=== PATIENT | male | born 1970 | race Caucasian/White ===

== ENCOUNTER 2021-01-29 16:19 | Emergency (ER) | payer OTHER ==
[2021-01-29 16:52] VITALS: BP 146/82; PULSE 82
[2021-01-29] MEDS ORDERED: Diphtheria,Pertussis(Acell),Tetanus Vaccine 0.5 ML Syringe IM ONE (17:11)
--- NOTE | 2021-01-29 17:17 | EDM.PDOC ---
ED HPI GENERAL MEDICAL PROBLEM - General Chief Complaint: Head Injury Stated Complaint: FELL AND HIT HEAD Time Seen by Provider: 01/29/21 16:55 Source of Information: Reports: Patient History Limitations: Reports: No Limitations - History of Present Illness INITIAL COMMENTS - FREE TEXT/NARRATIVE: c/o head injury worked 17y at [employer], cleaning out the back of a truck with a 10' metal pole, the floor was slick and he slipped, falling to his left, the pole was in his hand and the butt came back and hit him in his R forehead as he fell onto his L side, no LOC, no SCOTT, slight soreness of LUE is now resolved, no neck pain last 2009 he had a lot of swell in his forehead that came down quickly with ice, mild tender to palp FOREHEAD Pain Score (Numeric/FACES): 3 - Related Data Allergies Allergy/AdvReac Type Severity Reaction Status Date / Time No Known Allergies Allergy Verified 12/18/14 19:27 Home Meds: Home Meds Albuterol Sulfate [Albuterol Sulfate HFA] 8.5 gm IH ASDIRECTED PRN 12/19/14 [History] Fluticasone/Salmeterol [Advair 250-50 Diskus] 1 puff INH ASDIRECTED PRN 12/19/14 [History] Montelukast [Singulair] 4 mg PO DAILY 12/19/14 [History] metFORMIN [Glucophage] 1,000 mg PO DAILY 12/19/14 [History] glyBURIDE [Micronase] 5 mg PO BID 01/29/21 [History] lisinopriL [Lisinopril] 10 mg PO DAILY 01/29/21 [History] Past Medical History - Past Health History Medical/Surgical History: Denies Medical/Surgical History Cardiovascular History: Reports: Hypertension Respiratory History: Reports: Asthma Endocrine/Metabolic History: Reports: Diabetes, Type II Social & Family History - Tobacco Use Tobacco Use Status *Q: Never Tobacco User - Recreational Drug Use Recreational Drug Use: No ED ROS GENERAL - Review of Systems Review Of Systems: See Below Constitutional: Reports: No Symptoms HEENT: Reports: No Symptoms Respiratory: Reports: No Symptoms Cardiovascular: Reports: No Symptoms Endocrine: Reports: No Symptoms GI/Abdominal: Reports: No Symptoms : Reports: No Symptoms Musculoskeletal: Reports: No Symptoms Skin: Reports: Wound Neurological: Reports: No Symptoms Psychiatric: Reports: No Symptoms Hematologic/Lymphatic: Reports: No Symptoms Immunologic: Reports: No Symptoms ED EXAM, HEAD INJURY - Physical Exam Exam: See Below Exam Limited By: No Limitations General Appearance: Alert, WD/WN, No Apparent Distress Head: Other (several cm's swell at R lateral forehead at hair line on arrival per RN, pt kept ice on it and there was only 0.5 cm subc edema on my exam, superficial abrasion 2.5 x 2.5 cm, slight tender c/w contusion, no clinical evidence of fx, no ecchymosis, slight rubra c/w cool ice, PERRLA, EOMI) Eyes: Bilateral Eye: EOMI, PERRL Ears: Normal External Exam, Hearing Grossly Normal Nose: Normal Inspection, Normal Mucousa, No Blood Throat/Mouth: Normal Inspection, Normal Lips, Normal Voice, No Airway Compromise Neck: Non-Tender, Full Range of Motion, Normal Alignment, Normal Inspection. No: Muscle Spasm Respiratory: No Respiratory Distress, Lungs Clear Cardiovascular: Regular Rate, Rhythm, No Edema, No Murmur GI/Abdominal Exam: Soft, Non-Tender, No Distention Back Exam: Normal Inspection Extremities: Normal Inspection, Normal Range of Motion, Non-Tender, No Pedal Edema Neurologic: No Motor/Sensory Deficits, Alert, Normal Mood/Affect, Oriented x 3 Skin: Normal Color, Warm/Dry - [place] Coma Score Best Eye Response (Arely): (4) Open Spontaneously Best Verbal Response (Arely): (5) Oriented Best Motor Response (Arely): (6) Obeys Commands Course - Vital Signs Last Recorded V/S: Last Vital Signs Temp Pulse 82 01/29/21 16:30 Resp 18 01/29/21 16:30 BP 146/82 H 01/29/21 16:30 Pulse Ox 96 01/29/21 16:30 - Orders/Labs/Meds Orders: Active Orders 24 hr Category Date Time Status Vaccines to be Administered [RC] PER UNIT ROUTINE Care 01/29/21 17:11 Ordered Diphth,Pertuss(Acell),Tet Vac [Boostrix] Med 01/29/21 17:11 Once 0.5 ml IM .ONCE ONE - Re-Assessments/Exams Free Text/Narrative Re-Assessment/Exam: 01/29/21 17:20 soft tissue injury from force of metal pole on a small area of scalp/forehead he was in the last hour of his shift and did not need a work note urine for drug screen obtained per protocol to see PCP if he has additional symptoms Departure - Departure Time of Disposition: 17:12 Disposition: Home, Self-Care 01 Condition: Good Clinical Impression: Contusion of scalp - Discharge Information *PRESCRIPTION DRUG MONITORING PROGRAM REVIEWED*: Not Applicable *COPY OF PRESCRIPTION DRUG MONITORING REPORT IN PATIENT BETO: Not Applicable Instructions: Facial or Scalp Contusion Referrals: Abigail Piper PA-C [Primary Care Provider] - Additional Instructions: Continue ice for 10 minutes every hour as needed. For pain, as needed, take ibuprofen 200 mg 4 tabs 3 times a day. Get adequate rest today. May work tomorrow. See you doctor in 1-2 days if you have additional symptoms. Sepsis Event Note (ED) - Evaluation Sepsis Screening Result: No Definite Risk - Focused Exam Vital Signs: Vital Signs Pulse Resp BP Pulse Ox 01/29/21 16:30 82 18 146/82 H 96 - My Orders Last 24 Hours: My Active Orders 01/29/21 17:11 Vaccines to be Administered [RC] PER UNIT ROUTINE Diphth,Pertuss(Acell),Tet Vac [Boostrix] 0.5 ml IM .ONCE ONE - Assessment/Plan Last 24 Hours: My Active Orders 01/29/21 17:11 Vaccines to be Administered [RC] PER UNIT ROUTINE Diphth,Pertuss(Acell),Tet Vac [Boostrix] 0.5 ml IM .ONCE ONE
== END 2021-01-29 17:30 | disposition home or self-care (01) ==
LOC: FB.ED 16:19
DX: S00.03XA Contusion of scalp, initial encounter (principal); Z23 Encounter for immunization; I10 Essential (primary) hypertension; J45.909 Unspecified asthma, uncomplicated; E11.9 Type 2 diabetes mellitus without complications; Z79.84 Long term (current) use of oral hypoglycemic drugs; Z79.899 Other long term (current) drug therapy; W01.10XA Fall on same level from slipping, tripping and stumbling with subsequent striking against unspecified object, initial encounter
CPT/HCPCS: 90471; 90715; 99283

== ENCOUNTER 2021-10-02 01:43 | Emergency (ER) | payer OTHER ==
[2021-10-02 02:19] VITALS: PULSE 70
--- NOTE | 2021-10-02 02:36 | EDM.PDOC ---
ED HPI GENERAL MEDICAL PROBLEM - General Chief Complaint: General Stated Complaint: work comp injury/drug screening Time Seen by Provider: 10/02/21 02:10 Source of Information: Reports: Patient - History of Present Illness INITIAL COMMENTS - FREE TEXT/NARRATIVE: 51-year-old gentleman came to the emergency department from work after accidentally hitting his head on the threaded end of a pipe. Walked around the wrong side of his truck and struck the left side of his forehead on the very end of a threaded pipe extending from the wall. His surprise from hitting the pipe caused him to stumble and fall towards his right side. Does not complain of any pain from the fall. He landed kind of on his right side and has no right-sided pain. Does have a small abrasion type injury on his forehead. He denies h eadache, photophobia, neck pain, back pain. He has no acute complaints. Prior to the fall he had no problems or complaints. Review I have fever, chills, flulike symptoms, chest pain, shortness of breath, change in bowel or bladder habits. - Related Data Allergies Allergy/AdvReac Type Severity Reaction Status Date / Time No Known Allergies Allergy Verified 10/02/21 02:06 Home Meds: Home Meds Albuterol Sulfate [Albuterol Sulfate HFA] 8.5 gm IH ASDIRECTED PRN 12/19/14 [History] Fluticasone/Salmeterol [Advair 250-50 Diskus] 1 puff INH ASDIRECTED PRN 12/19/14 [History] glyBURIDE [Micronase] 5 mg PO BID 01/29/21 [History] lisinopriL [Lisinopril] 10 mg PO DAILY 01/29/21 [History] Montelukast [Singulair] 10 mg PO DAILY 10/02/21 [History] metFORMIN [Glucophage XR] 500 mg PO DAILY 10/02/21 [History] Past Medical History - Past Health History Medical/Surgical History: Denies Medical/Surgical History Cardiovascular History: Reports: Hypertension Respiratory History: Reports: Asthma Endocrine/Metabolic History: Reports: Diabetes, Type II - Past Surgical History GI Surgical History: Reports: Cholecystectomy ED ROS GENERAL - Review of Systems Review Of Systems: See Below Constitutional: Reports: No Symptoms HEENT: Reports: No Symptoms Respiratory: Reports: No Symptoms Cardiovascular: Reports: No Symptoms Endocrine: Reports: No Symptoms GI/Abdominal: Reports: No Symptoms : Reports: No Symptoms Musculoskeletal: Reports: No Symptoms Skin: Reports: Wound Neurological: Reports: No Symptoms Psychiatric: Reports: No Symptoms Hematologic/Lymphatic: Reports: No Symptoms Immunologic: Reports: No Symptoms ED EXAM, GENERAL - Physical Exam Exam: See Below Free Text/Narrative:: Proprioception is intact in the bilateral upper and lower extremities. Pronator drift test is negative. Active range of motion testing of the back, neck, shoulders, elbows, wrists, hands are within normal limits. There was no tenderness to palpation along the cervical spine or the paraspinal musculature. There was no photophobia with pupillary testing. Exam Limited By: No Limitations General Appearance: Alert, WD/WN, No Apparent Distress Eye Exam: Bilateral Eye: EOMI, PERRL Head: Atraumatic, Normocephalic, Other (No obvious bruising, swelling, no tenderness to palpation over the forehead bilaterally. There is a small abrasion approximately 4 to 5 cm long in the shape of an L in the left forehead) Neck: Normal Inspection, Supple, Non-Tender, Full Range of Motion Respiratory/Chest: No Respiratory Distress, Lungs Clear Cardiovascular: Normal Peripheral Pulses, Regular Rate, Rhythm Peripheral Pulses: 2+: Radial (L), Radial (R), Dorsalis Pedis (L), Dorsalis Pedis (R) GI/Abdominal: Normal Bowel Sounds, Soft, Non-Tender Back Exam: Normal Inspection Extremities: Normal Inspection Neurological: Alert, Oriented, Normal Cognition, Normal Gait, Normal Reflexes, No Motor/Sensory Deficits Psychiatric: Normal Affect, Normal Mood Skin Exam: Warm, Dry, Other (Approximately 5 cm long L-shaped abrasion on the left forehead as described above. There is some scant ear discharge but the wound is clean at this time with no erythema or edema at this time) Course - Vital Signs Last Recorded V/S: Last Vital Signs Temp 35.6 C L 10/02/21 01:50 Pulse 70 10/02/21 01:50 Resp 18 10/02/21 01:50 BP 144/100 H 10/02/21 01:50 Pulse Ox 95 10/02/21 01:50 Departure - Departure Time of Disposition: 02:36 Disposition: Home, Self-Care 01 Condition: Good Clinical Impression: Head trauma - Discharge Information *PRESCRIPTION DRUG MONITORING PROGRAM REVIEWED*: Not Applicable *COPY OF PRESCRIPTION DRUG MONITORING REPORT IN PATIENT BETO: Not Applicable Instructions: Head Injury, Adult, [id number] Referrals: Abigail Piper PA-C [Primary Care Provider] - Additional Instructions: Discussed proper wound care for the abrasion on his forehead including keeping the wound clean and dry. Discussed the use of antibiotic ointments and discouraged use unless the patient feels is necessary. Discussed avoiding hats and other things that can cause mechanical agitation to the open area to aid healing. Discussed signs and symptoms of traumatic brain injury/concussion. I advised the patient return for further evaluation if he experiences signs and symptoms of discussion. Patient is cleared to return to work at his next shift. Sepsis Event Note (ED) - Evaluation Sepsis Screening Result: No Definite Risk - Focused Exam Vital Signs: Vital Signs Temp Pulse Resp BP Pulse Ox 10/02/21 01:50 35.6 C L 70 18 144/100 H 95
[2021-10-02 03:40] VITALS: BP 140/93
== END 2021-10-02 02:50 | disposition home or self-care (01) ==
LOC: FB.ED 01:43
DX: S00.81XA Abrasion of other part of head, initial encounter (principal); E11.9 Type 2 diabetes mellitus without complications; I10 Essential (primary) hypertension; Z79.84 Long term (current) use of oral hypoglycemic drugs; Z79.899 Other long term (current) drug therapy; W22.09XA Striking against other stationary object, initial encounter
CPT/HCPCS: 99000; 99283